=== PATIENT | male | born 1985 | race Caucasian/White ===

== ENCOUNTER 2016-09-06 01:50 | Emergency (ER) | payer OTHER ==
[2016-09-06] MEDS ORDERED: FAMOTIDINE 20 MG TAB PO ONE (03:11)
--- NOTE | 2016-09-06 03:11 | EDPHY ---
H & P Stated Complaint: c/o burning sensation in upper abd, some intermittent nausea, no vomit Time Seen by Provider: 09/06/16 02:33 HPI/ROS: HPI The patient presents with upper abdominal pain and burning which has been present for the last 2 days. It is intermittent and moderate in severity. He was able to take Tums yesterday with resolution in his symptoms. However tonight while sleeping, his symptoms became more severe and he experienced both burning and pain with nausea. He tried baking soda and water and Tums without any improvement in his symptoms. He was unable to sleep so came into the emergency room. He says the symptoms feel similar to his presentation to the ER in November of 2015 when he was diagnosed with gastritis. He wonders if he could have H pylori. He denies any dark or bloody stools. He denies any vomiting. REVIEW OF SYSTEMS Constitutional: No fever, no chills. Eyes: No discharge. ENT: No sore throat. Cardiovascular: No chest pain, no palpitations. Respiratory: No cough, no shortness of breath. Gastrointestinal: See HPI Genitourinary: No hematuria. Musculoskeletal: No back pain. Skin: No rashes. Neurological: No headache. PMHx: Small intestine bacterial overgrowth, exposure to mold PHYSICAL General Appearance: Alert, no distress Eyes: Pupils equal and round no pallor or injection ENT, Mouth: Mucous membranes moist Respiratory: There are no retractions, lungs are clear to auscultation Cardiovascular: Regular rate and rhythm Gastrointestinal: Abdomen is soft with very mild tenderness in the epigastrium , no masses, bowel sounds normal Neurological: A&O, moves all extremities Skin: Warm and dry, no rashes Musculoskeletal: Neck is supple non tender Extremities: symmetrical, full range of motion Psychiatric: Patient is oriented X 3, there is no agitation Source: Patient Exam Limitations: No limitations - Medical/Surgical History Hx Asthma: No Hx Chronic Respiratory Disease: No Hx Diabetes: No Hx Cardiac Disease: No Hx Renal Disease: No Hx Cirrhosis: No Hx Alcoholism: No Hx HIV/AIDS: No Hx Splenectomy or Spleen Trauma: No Other PMH: PMHx: candidiasis, SIBO, 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 PSHx: bilat hip surgeries 2011 and 2012, foot surgery L - Social History Smoking Status: Never smoked Constitutional: Initial Vital Signs Temperature (C) 36.4 C 04/05/17 01:55 Heart Rate 81 09/06/16 01:55 Respiratory Rate 16 09/06/16 01:55 Blood Pressure 152/94 H 09/06/16 01:55 O2 Sat (%) 97 09/06/16 01:55 O2 Delivery Mode Room Air Allergies/Adverse Reactions: No Known Allergies Allergy (Verified 09/06/16 02:00) Home Medications: Medication Instructions Recorded Caprylic Acid 11/16/15 Fish Oil 11/16/15 Fluconazole 11/16/15 GARLIC 11/16/15 Magnesium Citrate 11/16/15 Naltrexone HCl 11/16/15 Nystatin 11/16/15 RESTORE 11/16/15 VITAMIN D 11/16/15 Vitamin B-12 11/16/15 Vitamin C 11/16/15 5-Htp 09/06/16 Medical Decision Making Differential Diagnosis: This is a 31-year-old male with multiple GI conditions including small intestinal bacterial overgrowth who presents with epigastric abdominal pain which is burning in nature and associated with nausea. He was not able to sleep tonight because of it. On exam, he has normal vital signs, he does have mild tenderness in the epigastrium. Differential diagnosis includes gastritis, gastroenteritis, less likely biliary colic. Given the mild nature of his symptoms, I do not feel laboratory testing would be helpful. He does ask for H pylori testing, however this can be done as an outpatient and would not change treatment in the emergency room, as we would not get the results back in a reasonable time frame. I have explained this to him. We discussed the different causes of gastritis and he believes this episode could be related to stress as he is feeling more stressed lately. We discussed treatments including Tums, H2 blockers. I will give him a dose of Pepcid tonight. I have encouraged him to not eat any meals 2 hours before bedtime and sleep with his head elevated. He is in agreement with this plan and will follow up with his usual doctor. - Data Points Medications Given: Discontinued Medications Famotidine (Pepcid) 20 mg PO EDNOW ONE Stop: 09/06/16 03:12 Last Admin: 09/06/16 03:24 Dose: 20 mg Departure - Departure Disposition: Home, Routine, Self-Care Clinical Impression: Gastritis Qualifiers: Gastritis type: unspecified gastritis Chronicity: acute Gastritis bleeding: without bleeding Qualified Code(s): K29.00 - Acute gastritis without bleeding Condition: Good Instructions: Gastritis (ED) Additional Instructions: Please return to the emergency room if your worse in any way. Otherwise you can follow up with your regular doctor for ongoing testing is needed. Referrals: NONE *PRIMARY CARE P,. [Primary Care Provider] - As per Instructions
[2016-09-06 03:26] VITALS: BP 144/93; PULSE 83; RESP 18; TEMP 98.1; O2SAT 95
== END 2016-09-06 03:25 | disposition home or self-care (01) ==
DX: K29.00 Acute gastritis without bleeding (principal)